=== PATIENT | female | born 1950 | race Caucasian/White ===

== ENCOUNTER 2017-11-25 18:38 | Observation (INO) | payer OTHER ==
[~2017-11-25] VITALS: Ht 162.6 cm; Wt 133.4 kg
[2017-11-25] MEDS ORDERED: MAG-OXIDE400 MG PO (20:16)
[2017-11-25] MEDS ORDERED: VALSARTAN-HCTZ1 EACH PO (20:16)
[2017-11-25] MEDS ORDERED: DOXYCYCLINE HY100 M3 PO (20:16)
[2017-11-25] MEDS ORDERED: PIOGLITAZONE HC45 MG PO (20:17)
[2017-11-25] MEDS ORDERED: LOVASTATIN40 MG PO (20:18)
[2017-11-25] MEDS ORDERED: DITROPAN5 MG PO (20:19)
[2017-11-25] MEDS ORDERED: METFORMIN HCL500 MG PO (20:19)
[2017-11-25 20:29] LABS: HEMATOCRIT 37.3 % (36.0-46.0); HEMOGLOBIN 12.2 G/DL (11.9-15.5); MCH 31.4 PG (29.0-34.0); MCHC 32.7 G/DL (30.0-36.0); MCV 95.9 FL (83-99); PLATELET COUNT 227 K/uL (156-360); RBC DIS.WIDTH-CV 13.8 % (11.8-14.6); RBC DIS.WIDTH-SD 49.1 % (39-53); RED BLOOD COUNT 3.89 M/uL (3.80-5.20); WHITE BLOOD COUNT 5.6 K/uL (4.1-10.2)
[2017-11-25 20:39] LABS: ALBUMIN 3.8 g/dL (3.2-4.8); CHLORIDE 104 mEq/L (99-109); POTASSIUM 4.5 mEq/L (3.7-5.4); SODIUM 141 mEq/L (136-147)
[2017-11-25 20:41] LABS: GLUCOSE 110 mg/dL (70-99)
[2017-11-25 20:43] LABS: TOTAL BILIRUBIN 0.5 mg/dL (0.0-1.0)
[2017-11-25 20:45] LABS: ALKALINE PHOSPHATASE 69 IU/L (3-129); CREATININE 0.7 mg/dL (0.6-1.3)
[2017-11-25 20:46] LABS: GFR ESTIMATE (CALCULATED) > 59 mL/min/; UREA NITROGEN (BUN) 28 mg/dL (9-23)
[2017-11-25 20:47] LABS: AST (GOT) 14 IU/L (2-34)
[2017-11-25 20:48] LABS: ALT (GPT) 13 IU/L (3-49)
[2017-11-25 20:49] LABS: TROP-I INTERPRETATION NEGATIVE; TROPONIN-I < 0.01 ng/mL (0.0-0.30)
[2017-11-26 01:06] VITALS: BP 100/51
[2017-11-26 02:15] VITALS: BP 103/52
[2017-11-26 03:46] LABS: TROP-I INTERPRETATION NEGATIVE; TROPONIN-I < 0.01 ng/mL (0.0-0.30)
[2017-11-26 04:16] LABS: HDL CHOLESTEROL 50 MG/DL (Desirable>=50); LDL CHOLESTEROL 61 mg/dL (Desirable<100); NON-HDL CHOLESTEROL 79 mg/dL (Desirable<160); TOTAL CHOLESTEROL 129 mg/dL (Desirable<200); TRIGLYCERIDES 91 MG/DL (Normal: <150)
[2017-11-26 04:27] VITALS: BP 111/56
[2017-11-26 08:56] VITALS: BP 116/56
[2017-11-26 09:26] LABS: TROP-I INTERPRETATION NEGATIVE; TROPONIN-I < 0.01 ng/mL (0.0-0.30)
[2017-11-26 09:45] LABS: CHLORIDE 107 MEQ/L (99-109); MAGNESIUM 1.8 mg/dl (1.3-2.7); SODIUM 143 MEQ/L (136-147)
[2017-11-26 09:51] LABS: CREATININE 0.6 MG/DL (0.6-1.3); GFR ESTIMATE (CALCULATED) > 59 mL/min/; GLUCOSE 105 mg/dL (70-99); UREA NITROGEN (BUN) 23 mg/dL (9-23)
[2017-11-26 11:18] VITALS: BP 136/69
== END 2017-11-26 12:38 | disposition home or self-care (01) ==
LOC: EXP 18:38 → EME 18:38 → EDOF 21:58 → ENRESERV 21:59 → 5WEST 11-26 00:03
PROVIDERS: Hospitalist; Physician Assistant; Physician Assistant Medical
DX: R07.9 Chest pain, unspecified (principal); I10 Essential (primary) hypertension; E78.00 Pure hypercholesterolemia, unspecified; E11.9 Type 2 diabetes mellitus without complications; E66.01 Morbid (severe) obesity due to excess calories; Z68.43 Body mass index [BMI] 50.0-59.9, adult; M19.90 Unspecified osteoarthritis, unspecified site; Z85.42 Personal history of malignant neoplasm of other parts of uterus; R60.0 Localized edema; Z86.19 Personal history of other infectious and parasitic diseases; Z87.891 Personal history of nicotine dependence; Z79.84 Long term (current) use of oral hypoglycemic drugs; E78.5 Hyperlipidemia, unspecified
CPT/HCPCS: 71020; 71275; 80048; 80053; 80061; 82948; 83735; 83880; 84484; 85027; 93005; 93970; 99281; 99284; G0378; J1650; J1940